=== PATIENT | male | born 1950 | race Caucasian/White ===

== ENCOUNTER 2019-08-07 01:35 | Outpatient (CLI) | payer MEDICARE, OTHER, SELFPAY ==
--- NOTE | 2019-08-07 11:45 | DI.NM_ITS ---
APPROVED REPORT Exam: Pharmacologic Patient Location: Out-Patient Room/Bed: Stress Nurse: Yvonne Adame RN BMI: 36.18 Baseline Rhythm: Sinus Bradycardia Indications: Patient testing today ???because Dr. Anguiano sent me???. He reports SOB with activity over the last 3-4 years. Medical History Medical History: Chronic Ischemic Heart Disease, Obesity. Patient 's medical record shows history of Ateriosclerosis of Coronary Atery Bypass Graft---Note: patient denies this. Cardiac Medications: Aspirin, Carvedilol, Losartan, Rosuvastatin, Nitrostat. Allergies: Lisinopril Cardiac Risk Factors: HTN, Hyperlipidemia, Diabetes (insulin) Previous Cardiac Procedures: Angioplasty Pretest Chest Pain Characteristics: No chest pain Exercise History: Sedentary Physical Disabilities: Hips Lung Sounds: Clear to auscultation Heart Sounds: Regular Stress Test Details Test: Pharmacologic stress testing performed using 0.4 mg of regadenoson per 5 mL given IV over 10 s econds. Reason for pharmacologic stress test: physical limitation. Nuclear Acquisition: Rest Tc-99m/Stress Tc-99m 1 day Rest Isotope: Tc-99m Sestamibi. Dose: 12.3 Date: 08/07/2019 Injection Time: 1200 Stress Isotope: Tc-99m Sestamibi. Dose: 38.0 Date: 08/07/2019 Injection Time: 1322 HR Resting HR Supine: 58 bpm Max Heart Rate (APMHR): 149 bpm Target HR (85% APMHR): 126 bpm Max HR Achieved: 77 bpm % of APMHR: 51 BP Resting BP Supine: 140/80 mmHg Max BP: 162/80 mmHg ECG Resting ECG: Sinus Bradycardia Ectopy: none Stress ECG: Sinus Rhythm ST Change: Normal Arrhythmia: None Recovery ECG: Sinus Rhythm Recovery ST Change: Normal Recovery Arrhythmia: None Clinical Stress Symptoms: None Stress ECG Conclusion 1. Pharmacological stress was performed. The patient had no symptoms suggestive of ischemia. 2. EKG portion was indeterminate. Protocol Used: Regadenoson Stress Test Summary STAGE HR BP Symptoms NOTES Supine 58 140/80 1 min post Lexiscan injection 63 150/80 3 min post Lexiscan injection 73 162/80 6 min post Lexiscan injection 68 140/80 9 min post Lexiscan injection 12 min post Lexiscan injection 15 min post Lexiscan injection MPI Conclusion Ejection fraction was 57%. There were no wall motion abnormalities. There is no evidence of ischemia on the imaging portion of this exam. This represents a normal SPECT stress test. Radiologist Interpretation Radiologist Interpretation by: Dylan Tate MD Interpretation Date/Time: 08/07/2019 15:22:37
[2019-08-07] MEDS: Regadenoson 0.4 MG/5 ML SYR IVP (13:00)
== END 2019-08-07 01:55 ==
PROVIDERS: PCP Family Medicine; Visit Provider Family Medicine
DX: R07.9 Chest pain, unspecified (principal); R06.02 Shortness of breath; I10 Essential (primary) hypertension; E78.5 Hyperlipidemia, unspecified
CPT/HCPCS: 78452; 93016; 93018; 93017; J2785